=== PATIENT | male | born 1985 | race Hispanic/Latino ===

== ENCOUNTER 2021-09-28 00:51 | Emergency (ER) | payer SELFPAY ==
[2021-09-28] MEDS ORDERED: Lidocaine 1% PF 5 ML VIAL ONE (02:33)
== END 2021-09-28 02:52 | disposition home or self-care (01) ==
LOC: ERS 00:51
DX: S01.01XA Laceration without foreign body of scalp, initial encounter (principal); F10.129 Alcohol abuse with intoxication, unspecified; W18.30XA Fall on same level, unspecified, initial encounter
CPT/HCPCS: 12002; 70450; 72125